=== PATIENT | female | born 1950 | race Caucasian/White ===

== ENCOUNTER 2017-12-15 15:40 | Emergency (ER) | payer MEDICARE, BC ==
[2017-12-15] MEDS ORDERED: Sodium Chloride 0.9% 1,000 ML IV ONE (16:12)
[2017-12-15] MEDS ORDERED: Sodium Chloride 0.9% 10 ML Syringe FLUSH PRN (16:12)
[2017-12-15] MEDS ORDERED: Metoclopramide 10 MG/2 ML SDV IVPUSH ONE (16:19)
--- NOTE | 2017-12-15 16:48 | EDM.PDOC ---
ED HPI GENERAL MEDICAL PROBLEM - General Chief Complaint: Neurological Problem Stated Complaint: [id number] DIZZY NAUSEATED Time Seen by Provider: 12/15/17 16:15 Source of Information: Reports: Patient, RN, RN Notes Reviewed History Limitations: Reports: No Limitations - History of Present Illness INITIAL COMMENTS - FREE TEXT/NARRATIVE: Patient presents to ER with complaint of severe dizziness that began at 1:00 p.m. today. She has been moving her head a lot, room is spinning. She has nausea and vomiting. Diarrhea today 4-5 times. She is cold and shivering today as well. States she has Meclizine, which does not help. She cannot close her eyes or lay on the left side of her head. She has shortness of breath and chills. She has no chest pain or fever. 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 Onset: Gradual Duration: Getting Worse Location: Reports: Head Quality: Reports: Ache Severity: Moderate Improves with: Reports: None Worsens with: Reports: None Associated Symptoms: Reports: No Other Symptoms - Related Data Allergies Allergy/AdvReac Type Severity Reaction Status Date / Time cephalexin [Cephalexin] Allergy Itching Verified 08/15/16 06:31 sulfamethoxazole Allergy Itching Verified 08/15/16 06:31 [From Bactrim] trimethoprim [From Bactrim] Allergy Itching Verified 08/15/16 06:31 Tetanus Vaccines and Toxoid AdvReac arm blew Verified 12/15/17 15:53 up like a balloon venlafaxine HCl AdvReac Hyperactivi Verified 08/15/16 06:31 [From Effexor] ty Home Meds: Home Meds Cholecalciferol (Vitamin D3) [D-2000] 2,000 unit PO DAILY 08/03/13 [History] Fish Oil/[place]-3 Fatty Acids [Fish Oil] 1 each PO DAILY 08/03/13 [History] Multivitamin [Multi Vitamin Daily] 1 each PO DAILY 08/03/13 [History] ALPRAZolam [ALPRAZolam XR] 1 mg PO DAILY 09/24/14 [History] QUEtiapine [SEROquel] 100 mg PO DAILY 09/24/14 [History] Aspirin/Acetaminophen/Caffeine [Migraine Formula Caplet] 1 tab PO ASDIRECTED PRN 08/14/16 [History] Loratadine 10 mg PO BEDTIME 08/14/16 [History] Rosuvastatin [Crestor] 10 mg PO BEDTIME 08/14/16 [History] Sennosides/Docusate Sodium [Senna S Tablet] 1 - 2 tab PO ASDIRECTED PRN [History] Levothyroxine [Synthroid] 1 tab PO DAILY 12/15/17 [History] QUEtiapine Fumarate [Quetiapine Fumarate] 1 tab PO DAILY 12/15/17 [History] Temazepam 1 tab PO ASDIRECTED PRN 12/15/17 [History] Past Medical History HEENT 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: Other (See Below) (vestibular nerve damage.) Cardiovascular 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: None Respiratory 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: None Gastrointestinal 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: GERD 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 SPECIALIST 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: 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 Musculoskeletal 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: Arthritis Neurological 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: Migraines Psychiatric 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: Anxiety Endocrine/Metabolic 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: Hypothyroidism Hematologic 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: Anemia Immunologic 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: None Oncologic (Cancer) 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: None Dermatologic 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: None - Infectious Disease History Infectious Disease 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: Chicken Pox, Measles, Mumps Social & Family History - Family History Cardiac: Reports: CAD, Hypertension Respiratory: Reports: None GI: Reports: Colon Polyps : Reports: Renal Disease/Insufficiency OBGYN: Reports: None Musculoskeletal: Reports: Arthritis Neurological: Reports: Migraines Psychiatric: Reports: Anxiety Oncologic: Reports: Colon - Caffeine Use Caffeine Use: Reports: None ED ROS ENT - Review of Systems Review Of Systems: ROS reveals no pertinent complaints other than HPI. ED EXAM, ENT - Physical Exam Exam: See Below Exam Limited By: No Limitations General Appearance: Other (pale) Neck: Normal Inspection, Supple, Non-Tender, Full Range of Motion Respiratory/Chest: No Respiratory Distress, Lungs Clear, Normal Breath Sounds, No Accessory Muscle Use, Chest Non-Tender Cardiovascular: Normal Peripheral Pulses, Regular Rate, Rhythm, No Edema, No Gallop, No JVD, No Murmur, No Rub GI/Abdominal: Normal Bowel Sounds, Soft, Non-Tender, No Organomegaly, No Distention, No Abnormal Bruit, No Mass (Female) Exam: Deferred Rectal (Female) Exam: Deferred Back: Normal Inspection, Full Range of Motion Extremities: Normal Inspection, Normal Range of Motion, Non-Tender, No Pedal Edema, Normal Capillary Refill Neurological: Other (dizzy) Psychiatric: Anxious Skin: Other (pale) Lymphatic: No Adenopathy Course - Vital Signs Last Recorded V/S: Last Vital Signs Temp 97.2 F 12/15/17 18:34 Pulse 70 12/15/17 18:34 Resp 16 12/15/17 18:34 BP 155/78 H 12/15/17 18:34 Pulse Ox 100 12/15/17 18:34 - Orders/Labs/Meds Orders: Active Orders 24 hr Category Date Time Status Peripheral IV Care [RC] . DIRECTED Care 12/15/17 16:12 Active UA W/MICROSCOPIC [URIN] Stat Lab 12/15/17 16:54 Ordered Peripheral IV Insertion Adult [OM.PC] Stat Oth 12/15/17 16:11 Ordered Labs: Laboratory Tests 12/15/17 12/15/17 12/15/17 Range/Units 16:25 16:25 16:54 WBC 5.3 (5.0-10.0) 10^3/uL RBC 4.13 L (4.2-5.4) 10^6/uL Hgb 13.2 (12.0-16.0) g/dL Hct 39.3 (37.0-47.0) % MCV 95.2 (80-100) fL MCH 32.0 (27.0-34.0) pg MCHC 33.6 (33.0-35.0) g/dL Plt Count 211 (150-450) 10^3/uL Neut % (Auto) 62.8 (42.2-75.2) % Lymph % (Auto) 29.7 (20.5-50.1) % [place] % (Auto) 6.7 (2-8) % Eos % (Auto) 0.6 L (1.0-3.0) % Baso % (Auto) 0.2 (0.0-1.0) % Sodium 140 (135-145) mmol/L Potassium 3.8 (3.6-5.0) mmol/L Chloride 106 (101-111) mmol/L Carbon Dioxide 25.0 (21.0-31.0) mmol/L Anion Gap 12.8 BUN 14 (7-18) mg/dL Creatinine 0.7 (0.6-1.3) mg/dL Est Cr Clr Drug Dosing 69.19 mL/min Estimated GFR (MDRD) > 60 BUN/Creatinine Ratio 20.00 Glucose 107 H (74-105) mg/dL Calcium 9.5 (8.4-10.2) mg/dl Total Bilirubin 0.4 (0.2-1.0) mg/dL AST 25 (10-42) IU/L ALT 20 (10-60) IU/L Alkaline Phosphatase 86 (42-121) IU/L Total Protein 7.5 (6.7-8.2) g/dl Albumin 4.5 (3.2-5.5) g/dl Globulin 3.0 Albumin/Globulin Ratio 1.50 Urine Color Yellow (YELLOW) Urine Appearance Clear (CLEAR) Urine pH 7.5 (5.0-9.0) Ur Specific [place] 1.015 (1.005-1.030) Urine Protein Negative (NEGATIVE) Urine Glucose (UA) Negative (NEGATIVE) Urine Ketones Negative (NEGATIVE) Urine Occult Blood Negative (NEGATIVE) Urine Nitrite Negative (NEGATIVE) Urine Bilirubin Negative (NEGATIVE) Urine Urobilinogen 0.2 (0.2-1.0) mg/dL Ur Leukocyte Esterase Negative (NEGATIVE) Urine RBC 0-5 /HPF Urine WBC Not seen (0-5/HPF) /HPF Ur Epithelial Cells Rare /HPF Urine Bacteria Rare (0-FEW/HPF) /HPF Meds: Medications Discontinued Medications Generic Name Dose Route Start Last Admin Trade Name Freq PRN Reason Stop Dose Admin Sodium Chloride 1,000 mls @ 999 mls/hr 12/15/17 16:12 12/15/17 16:35 Normal Saline IV 12/15/17 17:12 999 mls/hr .BOLUS ONE Administration Metoclopramide HCl 10 mg 12/15/17 16:19 12/15/17 16:40 Reglan IVPUSH 12/15/17 16:20 10 mg ONETIME ONE Administration Promethazine HCl 25 mg 12/15/17 17:28 12/15/17 17:39 Phenergan IM 12/15/17 17:29 25 mg ONETIME ONE Administration Sodium Chloride 10 ml 12/15/17 16:12 12/15/17 16:30 Saline Flush FLUSH 10 ml ASDIRECTED PRN Administration Keep Vein Open - Radiology Interpretation Free Text/Narrative:: Head CT: No acute findings See rad report Departure - Departure Time of Disposition: 18:40 Disposition: Home, Self-Care 01 Condition: Fair Clinical Impression: Vestibular neuronitis, Vertigo - Discharge Information Instructions: Vertigo, Ryoe-[id number], Dizziness, [id number]-[id number] Forms: ED Department Discharge Additional Instructions: Follow up with ENT for further management RX: Zofran ODT - My Orders Last 24 Hours: My Active Orders 12/15/17 16:11 Peripheral IV Insertion Adult [OM.PC] Stat 12/15/17 16:12 Peripheral IV Care [RC] . DIRECTED 12/15/17 16:54 UA W/MICROSCOPIC [URIN] Stat - Assessment/Plan Last 24 Hours: My Active Orders 12/15/17 16:11 Peripheral IV Insertion Adult [OM.PC] Stat 12/15/17 16:12 Peripheral IV Care [RC] . DIRECTED 12/15/17 16:54 UA W/MICROSCOPIC [URIN] Stat
[2017-12-15 16:52] LABS: CHLORIDE,CL 106 mmol/L (101-111); SODIUM,NA 140 mmol/L (135-145)
[2017-12-15] MEDS ORDERED: Promethazine 25 MG/ML SDV IM ONE (17:28)
[2017-12-15 18:34] VITALS: BP 155/78
--- NOTE | 2017-12-16 08:13 | CT ---
CLINICAL HISTORY: 67-year-old female in the emergency department with severe dizziness, nausea and vo miting. SCAN TECHNIQUE: Volume acquisition of data from an emergency unenhanced CT head and brain obtained wh ile the patient was lying supine on the Siemens multislice scanner [facility] [place], [place]. All data archived in the PACS system for storage and study (bone/brain windows). INTERPRETATION: Microvascular ischemic changes involving the periventricular white matter of both cer ebral hemispheres but particularly occipital lobe posteriorly on the right that was present on Jan exam. Generalized atrophy pattern also unchanged. Underlying mirror-image normal ventricular system. Physio logic midline pineal and symmetric choroid plexus calcifications. No new supratentorial or posterior fossa mass lesion. No hydrocephalus. No sign of acute intracerebral/intraventricular/subarachnoid bleed Uniformly thick bony calvarium without sign of skull fracture, underlying brain contusion or epidural /subdural hematoma. Symmetric clear pneumatization of the paranasal and mastoid sinuses. Nasal septum is straight in the midline. CONCLUSION: Atrophy and chronic microvascular ischemic changes. *No new signs of intracranial mass, hydrocephalus or bleed since previous CT scan of the head, Jan.
== END 2017-12-15 18:49 | disposition home or self-care (01) ==
LOC: DL.ED 15:40
DX: H81.20 Vestibular neuronitis, unspecified ear (principal); Z88.1 Allergy status to other antibiotic agents; Z88.2 Allergy status to sulfonamides; Z88.7 Allergy status to serum and vaccine; Z88.8 Allergy status to other drugs, medicaments and biological substances; Z79.899 Other long term (current) drug therapy
CPT/HCPCS: 36415; 70450; 80053; 81001; 85025; 96361; 96372; 96374; 99283; 99284; J2550; J2765; J7030; J7050

== ENCOUNTER 2018-03-20 06:24 | Day surgery (SDC) | payer MEDICARE, BC ==
[~2018-03-20 06:24] MED LIST: Dextrose 5%-0.45% NaCl 1,000 ML IV SCH; Midazolam 1 MG/ML 2 ML SDV ONE; Sodium Chloride 0.9% 10 ML Syringe FLUSH PRN; fentaNYL 100 MCG/2 ML SDV ONE
[2018-03-20] MEDS ORDERED: fentaNYL 100 MCG/2 ML SDV IV ONE ×3 (06:25→07:37)
[2018-03-20] MEDS ORDERED: Midazolam 1 MG/ML 2 ML SDV IV ONE ×4 (06:25→07:39)
[2018-03-20 13:17] VITALS: BP 139/74
--- NOTE | 2018-03-20 14:49 | OR ---
DATE: 03/20/2018 PROCEDURES: Esophagogastroduodenoscopy and multiple pinch biopsies. INSTRUMENT USED: GIF-Q180 Olympus video panendoscope. PREMEDICATIONS: No oral topical anesthesia used. Fentanyl 100 mcg intravenous, Versed 2 mg intravenous. Nasal O2 cannula. The procedure was done under pulse oximetry, BP recording, and ekg monitor tech. INDICATION: The patient with persistent abdominal pain, dyspepsia, abdominal bloating unexplained, and not responsive to medical measures. DESCRIPTION OF PROCEDURE: Esophagogastroduodenoscopy is performed for detection of any active erosive lesions. Weaver esophagus and/or malignancy also under consideration. H. pylori status to be determined. Small bowel biopsies to be obtained for any evidence of celiac disease if indicated. Endoscopic hemostasis therapy if needed. The scope was passed with ease. Adequate visualization of the esophagus was made from proximal to distal areas. No upper esophageal lesions identified. No distal esophageal stricture. No uphill or downhill esophageal varices. No Gricel-Naranjo tear. No evidence of erosive esophagitis by [place] criteria. No esophageal polyp or tumor mass identified. Z-line was seen at around 35 cm distal to the oral verge. Four-quadrant biopsies were taken and sent for any histopathologic evidence of intestinal metaplasia. No proximal gastric varices noted. Gastric fundus examination by retroflexion showed no polypoid lesions. No gastric ulcer, malignant mass, or vascular ectasia identified. Multiple pinch biopsies were taken from the gastric antrum and proximal body and sent for PyloriTek test for H. pylori and histopathology. Duodenal bulb showed no ulcer. Visualized second part of the duodenum was unremarkable. Multiple pinch biopsies, 4 in number, were taken from different areas of the second part of the duodenum; and tissues were also obtained from the duodenal bulb at 9 o'clock and 12 o'clock positions and sent for any histopathologic evidence of celiac disease. No bleeding was noted from any of the visualized areas at the completion of examination. Photographs were taken of the duodenal bulb, gastric antrum, fundus, and distal esophagus. IMPRESSION: Columnar-lined distal esophagus. The patient tolerated the procedure well. [facility] /[id number]
== END 2018-03-20 09:45 | disposition home or self-care (01) ==
LOC: DL.ENDO 06:24
PROVIDERS: ATTEND Internal Medicine Gastroenterology
DX: K22.70 Barrett's esophagus without dysplasia (principal); K29.50 Unspecified chronic gastritis without bleeding; K31.89 Other diseases of stomach and duodenum; E78.00 Pure hypercholesterolemia, unspecified; E78.5 Hyperlipidemia, unspecified; E03.9 Hypothyroidism, unspecified; F41.1 Generalized anxiety disorder; K58.9 Irritable bowel syndrome, unspecified; K63.89 Other specified diseases of intestine; Z88.1 Allergy status to other antibiotic agents; Z88.2 Allergy status to sulfonamides; Z88.7 Allergy status to serum and vaccine; Z88.8 Allergy status to other drugs, medicaments and biological substances
CPT/HCPCS: 43239; 87077; J2250; J3010; J7042

== ENCOUNTER 2019-08-02 12:06 | Emergency (ER) | payer MEDICARE, BC ==
--- NOTE | 2019-08-02 12:17 | EDM.PDOC ---
ED HPI GENERAL MEDICAL PROBLEM - General Chief Complaint: Respiratory Problem Stated Complaint: SHORTNESS OF BREATH Time Seen by Provider: 08/02/19 12:17 Source of Information: Reports: Patient, Old Records, RN, RN Notes Reviewed History Limitations: Reports: No Limitations - History of Present Illness INITIAL COMMENTS - FREE TEXT/NARRATIVE: Pt presents to ER from home by POV with c/o cough x3 weeks. She states she was seen in clinic and initially told she had a virus, but then cough persisted and she was treated with an antibiotic and Medrol pack which "did not help". Pt decided to come to the ER because the cough is not going away. 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 Denies fever, wheezing, hemoptysis, edema, or chest pain. 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 po - Related Data Allergies Allergy/AdvReac Type Severity Reaction Status Date / Time cephalexin [Cephalexin] Allergy Itching Verified 03/20/18 06:43 sulfamethoxazole Allergy Itching Verified 03/20/18 06:43 [From Bactrim] trimethoprim [From Bactrim] Allergy Itching Verified 03/20/18 06:43 fentanyl AdvReac Nausea and Verified 03/20/18 10:57 Vomiting midazolam [From Versed] AdvReac Nausea and Verified 03/20/18 10:57 Vomiting Tetanus Vaccines and Toxoid AdvReac arm blew Verified 03/20/18 06:43 up like a balloon venlafaxine HCl AdvReac Hyperactivi Verified 03/20/18 06:43 [From Effexor] ty Home Meds: Home Meds Cholecalciferol (Vitamin D3) [D-2000] 2,000 unit PO DAILY 08/03/13 [History] Fish Oil/[place]-3 Fatty Acids [Fish Oil] 1 each PO DAILY 08/03/13 [History] Multivitamin [Multi Vitamin Daily] 1 each PO DAILY 08/03/13 [History] ALPRAZolam [ALPRAZolam XR] 1 mg PO DAILY 09/24/14 [History] QUEtiapine [SEROquel] 100 mg PO DAILY 09/24/14 [History] Aspirin/Acetaminophen/Caffeine [Migraine Formula Caplet] 1 tab PO ASDIRECTED PRN 08/14/16 [History] Loratadine 10 mg PO BEDTIME 08/14/16 [History] Rosuvastatin [Crestor] 10 mg PO BEDTIME 08/14/16 [History] Sennosides/Docusate Sodium [Senna S Tablet] 1 - 2 tab PO ASDIRECTED PRN [History] Levothyroxine [Synthroid] 1 tab PO DAILY 12/15/17 [History] Omeprazole 20 mg PO DAILY 03/19/18 [History] Polyethylene Glycol 3350 [MiraLAX] 17 gm PO DAILY 03/19/18 [History] clonazePAM [Clonazepam] 1 mg PO DAILY 03/19/18 [History] Past Medical History HEENT 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: Impaired Vision, Sinusitis, Other (See Below) Other HEENT History: Vestibular Nerve Damage. 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: Musculoskeletal 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: Arthritis, Back Pain, Chronic Neurological 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: Migraines, Vertigo Other Neuro History: hx of migraines stopped having migraines after menopause Psychiatric 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: Anxiety, Panic Attack Endocrine/Metabolic 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: Hypothyroidism Hematologic 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: None Immunologic 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: None Oncologic (Cancer) 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: None Dermatologic 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: None - Infectious Disease History Infectious Disease 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: Chicken Pox, Measles, Mumps - Past Surgical History HEENT Surgical 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: None, Eye Surgery Other HEENT Surgeries/Procedures: Lazy eye Cardiovascular Surgical 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: Other (See Below) Other Cardiovascular Surgeries/Procedures: Echocardiogram. Stress test GI Surgical 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: Cholecystectomy, Colonoscopy, EGD Female Surgical 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: None Endocrine Surgical 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: None Musculoskeletal Surgical 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: None Oncologic Surgical 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: Other (See Below) Other Oncologic Surgeries/Procedures: back lesion removal which was benign Social & Family History - Family History Cardiac: Reports: CAD, Hypertension Respiratory: Reports: None GI: Reports: Colon Polyps : Reports: Renal Disease/Insufficiency OBGYN: Reports: None Musculoskeletal: Reports: Arthritis Neurological: Reports: Migraines Psychiatric: Reports: Anxiety Oncologic: Reports: Colon - Caffeine Use Caffeine Use: Reports: Coffee Caffeine Use Comment: 2 cups daily - Living Situation & Occupation Living situation: Reports: , with Spouse Occupation: Retired ED ROS GENERAL - Review of Systems Review Of Systems: Comprehensive ROS is negative, except as noted in HPI. ED EXAM, GENERAL - Physical Exam Exam: See Below Exam Limited By: No Limitations General Appearance: Alert, WD/WN, No Apparent Distress, Anxious ((in panic on arrival)) Eye Exam: Bilateral Eye: Normal Inspection Ears: Normal External Exam, Normal Canal, Hearing Grossly Normal, Other (Normal Rt TM. Left TM dull.) Nose: Normal Inspection, Normal Mucosa, No Blood Throat/Mouth: Normal Inspection, Normal Lips, Normal Teeth, Normal Gums, Normal Oropharynx, Normal Voice, No Airway Compromise Head: Atraumatic, Normocephalic Neck: Normal Inspection, Supple, Non-Tender, Full Range of Motion Respiratory/Chest: No Respiratory Distress, Lungs Clear, Normal Breath Sounds, No Accessory Muscle Use, Chest Non-Tender, Other (Dry cough) Cardiovascular: Normal Peripheral Pulses, Regular Rate, Rhythm, No Edema, No Murmur Extremities: Normal Inspection Neurological: Alert, Oriented, CN II-XII Intact, Normal Cognition, Normal Gait, No Motor/Sensory Deficits Psychiatric: Anxious, Flat Affect Skin Exam: Warm, Dry, Intact, Normal Color, No Rash EKG INTERPRETATION EKG Date: 08/02/19 Time: 12:58 Rhythm: Other (SR) Rate (Beats/Min): 70 [place]: Normal P-Wave: Present QRS: Other (early precordial R/S transition) ST-T: Normal QT: Normal Comparison: NA - No Prior EKG Course - Vital Signs Last Recorded V/S: Last Vital Signs Temp 97.5 F 08/02/19 12:17 Pulse 94 08/02/19 12:17 Resp 35 H 08/02/19 12:17 BP 125/94 H 08/02/19 12:17 Pulse Ox 100 08/02/19 12:17 - Orders/Labs/Meds Orders: Active Orders 24 hr Category Date Time Status EKG 12 Lead [EKG Documentation Completion] [RC] STAT Care 08/02/19 12:23 Active Peripheral IV Care [RC] . DIRECTED Care 08/02/19 12:24 Active Sodium Chloride 0.9% [Saline Flush] Med 08/02/19 12:23 Active 10 ml FLUSH ASDIRECTED PRN Peripheral IV Insertion Adult [OM.PC] Stat Oth 08/02/19 12:23 Ordered Medication Orders Sodium Chloride (Saline Flush) 10 ml FLUSH ASDIRECTED PRN PRN Reason: Keep Vein Open Last Admin: 08/02/19 12:40 Dose: 10 ml Labs: Laboratory Tests 08/02/19 08/02/19 08/02/19 Range/Units 12:18 12:18 12:18 WBC 6.1 (5.0-10.0) 10^3/uL RBC 4.68 (4.2-5.4) 10^6/uL Hgb 15.0 D (12.0-16.0) g/dL Hct 44.1 (37.0-47.0) % MCV 94.2 (80-100) fL MCH 32.1 (27.0-34.0) pg MCHC 34.0 (33.0-35.0) g/dL Plt Count 272 (150-450) 10^3/uL Neut % (Auto) 54.3 (42.2-75.2) % Lymph % (Auto) 34.5 (20.5-50.1) % [place] % (Auto) 9.9 H (2-8) % Eos % (Auto) 1.0 (1.0-3.0) % Baso % (Auto) 0.3 (0.0-1.0) % Sodium 140 (135-145) mmol/L Potassium 3.9 (3.6-5.0) mmol/L Chloride 102 (101-111) mmol/L Carbon Dioxide 25.0 (21.0-31.0) mmol/L Anion Gap 16.9 BUN 20 H (7-18) mg/dL Creatinine 0.9 (0.6-1.3) mg/dL Est Cr Clr Drug Dosing 52.38 mL/min Estimated GFR (MDRD) > 60 BUN/Creatinine Ratio 22.22 Glucose 94 (74-105) mg/dL Lactic Acid 3.4 H* (0.5-2.0) mmol/L Calcium 10.3 H (8.4-10.2) mg/dl Total Bilirubin 0.7 (0.2-1.0) mg/dL AST 28 (10-42) IU/L ALT 22 (10-60) IU/L Alkaline Phosphatase 81 (42-121) IU/L Troponin I < 0.02 (0.00-0.02) ng/ml Total Protein 8.3 H (6.7-8.2) g/dl Albumin 4.7 (3.2-5.5) g/dl Globulin 3.6 Albumin/Globulin Ratio 1.31 Meds: Medications Generic Name Dose Route Start Last Admin Trade Name Freq PRN Reason Stop Dose Admin Sodium Chloride 10 ml 08/02/19 12:23 08/02/19 12:40 Saline Flush FLUSH 10 ml ASDIRECTED PRN Administration Keep Vein Open - Radiology Interpretation Free Text/Narrative:: XR Chest: mild bronchitis pattern per Rad. report. Departure - Departure Time of Disposition: 13:20 Disposition: Home, Self-Care 01 Condition: Good Clinical Impression: Post-viral cough syndrome - Discharge Information *PRESCRIPTION DRUG MONITORING PROGRAM REVIEWED*: No *COPY OF PRESCRIPTION DRUG MONITORING REPORT IN PATIENT [place]: No Instructions: Acute Bronchitis, Adult, [id number], Bronchospasm, Adult Forms: ED Department Discharge Additional Instructions: Rx: Tessalon Perles 200mg Rx: Prednisone 20mg May try over the counter Magnesium 500mg by mouth twice a day. Follow up in clinic if needed. Sepsis Event Note - Evaluation Sepsis Screening Result: No Definite Risk - Focused Exam Vital Signs: Vital Signs Temp Pulse Resp BP Pulse Ox 08/02/19 12:17 97.5 F 94 35 H 125/94 H 100 Date Exam was Performed: 08/02/19 Time Exam was Performed: 13:14 - My Orders Last 24 Hours: My Active Orders 08/02/19 12:23 EKG 12 Lead [EKG Documentation Completion] [RC] STAT Sodium Chloride 0.9% [Saline Flush] 10 ml FLUSH ASDIRECTED PRN Peripheral IV Insertion Adult [OM.PC] Stat 08/02/19 12:24 Peripheral IV Care [RC] . DIRECTED - Assessment/Plan Last 24 Hours: My Active Orders 08/02/19 12:23 EKG 12 Lead [EKG Documentation Completion] [RC] STAT Sodium Chloride 0.9% [Saline Flush] 10 ml FLUSH ASDIRECTED PRN Peripheral IV Insertion Adult [OM.PC] Stat 08/02/19 12:24 Peripheral IV Care [] . DIRECTED
[2019-08-02 12:18] VITALS: BP 125/94; PULSE 94
[2019-08-02] MEDS ORDERED: Sodium Chloride 0.9% 10 ML Syringe FLUSH PRN (12:23)
[2019-08-02 12:46] LABS: ANION GAP 16.9; CHLORIDE,CL 102 mmol/L (101-111); SODIUM,NA 140 mmol/L (135-145)
--- NOTE | 2019-08-02 12:49 | CR ---
EXAMINATION: Chest 2V SEX: Female AGE: 69 years CLINICAL HISTORY: 69-year-old female complaining of COUGH. INTERPRETATION: (No comparisons immediately available) 1. Minimal peribronchial "cuffing" and no air trapping or focal lobar pneumonia. 2. No atelectasis/collapse. 3. Osteopenia and mild kyphosis dorsal spine. 4. Normal cardiac silhouette without pulmonary vascular congestion, cephalization of flow or signs of alveolar edema. 5. No lung mass or hilar lymphadenopathy. CONCLUSION: Mild bronchitis. No signs of heart failure or lobar pneumonia.
== END 2019-08-02 13:30 | disposition home or self-care (01) ==
LOC: DL.ED 12:06
DX: G93.3 Postviral and related fatigue syndromes (principal); R05 Cough; F41.9 Anxiety disorder, unspecified; K21.9 Gastro-esophageal reflux disease without esophagitis; E03.9 Hypothyroidism, unspecified; Z79.82 Long term (current) use of aspirin; Z79.899 Other long term (current) drug therapy
CPT/HCPCS: 36415; 71046; 80053; 83605; 84484; 85025; 87804; 93005; 99284-25

== ENCOUNTER 2021-08-10 14:46 | Emergency (ER) | payer MEDICARE, BC ==
[2021-08-10] MEDS ORDERED: Metoclopramide 10 MG/2 ML SDV IVPUSH ONE (16:02)
[2021-08-10] MEDS ORDERED: Sodium Chloride 0.9% 1,000 ML IV ONE ×2 (16:02→19:46)
[2021-08-10] MEDS: HYDROmorphone 0.5 MG/0.5 ML Syringe IVPUSH ONE ×2 (16:22→16:54)
[2021-08-10] MEDS ORDERED: HYDROmorphone 0.5 MG/0.5 ML Syringe IVPUSH ONE (17:28)
[2021-08-10] MEDS ORDERED: Ondansetron 4 MG/2 ML SDV IVPUSH ONE (17:43)
[2021-08-10] MEDS ORDERED: Promethazine 25 MG/ML SDV IM ONE (18:52)
[2021-08-10 20:06] LABS: ANION GAP 16.1 mEq/L (7-13); CHLORIDE,CL 105 mmol/L (98-107); SODIUM,NA 143 mmol/L (136-145)
[2021-08-10 20:47] VITALS: BP 133/85; PULSE 94
== END 2021-08-10 21:29 | disposition home or self-care (01) ==
LOC: DL.ED 14:46
DX: G89.18 Other acute postprocedural pain (principal); M25.511 Pain in right shoulder; R11.2 Nausea with vomiting, unspecified; R42 Dizziness and giddiness; E78.00 Pure hypercholesterolemia, unspecified; I10 Essential (primary) hypertension; K21.9 Gastro-esophageal reflux disease without esophagitis; M19.90 Unspecified osteoarthritis, unspecified site; E03.9 Hypothyroidism, unspecified; Z98.890 Other specified postprocedural states; Z88.1 Allergy status to other antibiotic agents; Z88.2 Allergy status to sulfonamides; Z88.6 Allergy status to analgesic agent; Z88.4 Allergy status to anesthetic agent; Z88.8 Allergy status to other drugs, medicaments and biological substances; Z88.7 Allergy status to serum and vaccine; Z79.82 Long term (current) use of aspirin; Z79.899 Other long term (current) drug therapy
CPT/HCPCS: 36415; 80053; 85025; 96372; 96374; 96375; 99284; J1170; J2405; J2550; J2765; J3360; J7030

== ENCOUNTER 2023-06-20 06:27 | Emergency (ER) | payer MEDICARE, BC ==
[2023-06-20] MEDS ORDERED: Ketorolac 30 MG/ML SDV IVPUSH ONE (06:45)
[2023-06-20] MEDS ORDERED: Sodium Chloride 0.9% 1,000 ML IV ONE (06:45)
[2023-06-20] MEDS ORDERED: Ondansetron 4 MG/2 ML SDV IVPUSH ONE (06:45)
[2023-06-20 07:25] VITALS: BP 139/76
[2023-06-20 07:32] LABS: INFLUENZA A NAA NEGATIVE (NEGATIVE); INFLUENZA B NAA NEGATIVE (NEGATIVE)
[2023-06-20 07:36] LABS: CORONAVIRUS COVID-19 NAA POSITIVE (NEGATIVE)
[2023-06-20 07:42] VITALS: PULSE 95
== END 2023-06-20 08:00 | disposition home or self-care (01) ==
LOC: DL.ED 06:27
DX: U07.1 COVID-19 (principal); I10 Essential (primary) hypertension; K21.9 Gastro-esophageal reflux disease without esophagitis; E78.00 Pure hypercholesterolemia, unspecified; E03.9 Hypothyroidism, unspecified; Z88.2 Allergy status to sulfonamides; Z88.7 Allergy status to serum and vaccine; Z88.4 Allergy status to anesthetic agent; Z88.5 Allergy status to narcotic agent; Z88.8 Allergy status to other drugs, medicaments and biological substances; Z79.82 Long term (current) use of aspirin; Z79.899 Other long term (current) drug therapy
CPT/HCPCS: 0240U; 87081; 87430; 96361; 96374; 96375; 99283; J1885; J2405; J7030; 99284

== ENCOUNTER 2024-03-29 11:39 | Emergency (ER) | payer MEDICARE, BC ==
[2024-03-29 12:01] VITALS: BP 150/77; PULSE 86
[2024-03-29 13:05] LABS: BASOPHILS PERCENT AUTO 0.2 % (0.0-1.0); EOSINOPHILS PERCENT AUTO 0.5 % (1.0-3.0); HEMATOCRIT 42.5 % (37.0-47.0); HEMOGLOBIN 13.9 g/dL (12.0-16.0); LYMPHOCYTES PERCENT AUTO 35.5 % (20.5-50.1); MEAN CORPUSCULAR HEMOGLOBIN 32.1 pg (27.0-34.0); MEAN CORPUSCULAR HGB CONC 32.7 g/dL (33.0-35.0); MEAN CORPUSCULAR VOLUME 98.2 fL (80-100); NEUTROPHILS PERCENT AUTO 54.8 % (42.2-75.2); PLATELET COUNT,PLT 226 10^3/uL (150-450); RED BLOOD CELL COUNT 4.33 10^6/uL (4.2-5.4); WHITE BLOOD CELL COUNT,WBC 4.2 10^3/uL (5.0-10.0)
[2024-03-29 13:25] LABS: A/G RATIO 1.2; ALANINE AMINOTRANSFERASE,ALT 24 U/L (14-59); ALKALINE PHOSPHATASE 110 U/L (46-116); ANION GAP 11.5 mEq/L (7-13); ASPARTATE AMNIOTRANSFERASE,AST 21 U/L (15-37); BILIRUBIN TOTAL 0.4 mg/dL (0.2-1.0); BLOOD UREA NITROGEN,BUN 20 mg/dL (7-18); CALCIUM 9.7 mg/dL (8.5-10.1); CARBON DIOXIDE,CO2 29 mmol/L (21-32); CHLORIDE,CL 104 mmol/L (98-107); EST CRCL DRUG DOSING (CG) 40.22 mL/min; GLUCOSE RANDOM 102 mg/dL (70-99); POTASSIUM,K 4.5 mmol/L (3.5-5.1); PROTEIN TOTAL,TP 7.4 g/dL (6.4-8.2); SODIUM,NA 140 mmol/L (136-145)
[2024-03-29 13:26] LABS: C-REACTIVE PROTEIN < 0.50 ng/dL (<=0.50); ESTIMATED GFR 60 mL/min (>=60)
[2024-03-29] MEDS: Ketorolac 30 MG/ML SDV IM ONE (14:06)
[2024-03-29] MEDS: Take Home: Clindamycin HCl 150 MG, 12 Cap Pack PO ONE (14:06)
== END 2024-03-29 14:36 | disposition home or self-care (01) ==
LOC: DL.ED 11:39
DX: N76.2 Acute vulvitis (principal); I10 Essential (primary) hypertension; E78.00 Pure hypercholesterolemia, unspecified; K21.9 Gastro-esophageal reflux disease without esophagitis; Z86.16 Personal history of COVID-19; Z90.49 Acquired absence of other specified parts of digestive tract; Z79.899 Other long term (current) drug therapy; Z88.8 Allergy status to other drugs, medicaments and biological substances; Z88.2 Allergy status to sulfonamides
CPT/HCPCS: 36415; 80053; 85025; 86140; 87804; 96372; 99283; 99284; A9270-GY; J1885; U0002